=== PATIENT | female | born 1995 | race Two or more races ===

== ENCOUNTER 2019-04-16 18:18 | Emergency (ER) | payer OTHER ==
--- NOTE | 2019-04-16 18:43 | EDM.PDOC ---
ED HPI GENERAL MEDICAL PROBLEM - General Chief Complaint: Genitourinary Problem Stated Complaint: POSSIBLE UTI Time Seen by Provider: 04/16/19 18:25 Source of Information: Reports: Patient History Limitations: Reports: No Limitations - History of Present Illness INITIAL COMMENTS - FREE TEXT/NARRATIVE: Pt. presents to ER with complaints of dysuria, frequency, and urgency that started today. She states that she has had UTIs in the past, and states that the symptoms are similar. Denies any fever or chills. No abd. pain. Denies any CVA tenderness. Pt. denies any nausea, vomiting, or diarrhea. She denies any current allergies. Onset: Today Onset Date: 04/16/19 Location: Reports: Generalized Quality: Reports: Burning Associated Symptoms: Denies: Diaphoresis, Fever/Chills, Loss of Appetite, Malaise, Nausea/Vomiting, Rash, Shortness of Breath - Related Data Allergies Allergy/AdvReac Type Severity Reaction Status Date / Time No Known Allergies Allergy Verified 04/16/19 18:33 Home Meds: Home Meds . [No Known Home Meds] 04/16/19 [History] Past Medical History - Past Health History Medical/Surgical History: Denies Medical/Surgical History Social & Family History - Tobacco Use Smoking Status *Q: Never Smoker - Recreational Drug Use Recreational Drug Use: No ED ROS GENERAL - Review of Systems Review Of Systems: See Below Constitutional: Reports: No Symptoms HEENT: Reports: No Symptoms Respiratory: Reports: No Symptoms Cardiovascular: Reports: No Symptoms Endocrine: Reports: No Symptoms GI/Abdominal: Reports: No Symptoms : Reports: Dysuria, Frequency, Urgency Musculoskeletal: Reports: No Symptoms Skin: Reports: No Symptoms Neurological: Reports: No Symptoms Psychiatric: Reports: No Symptoms Hematologic/Lymphatic: Reports: No Symptoms Immunologic: Reports: No Symptoms ED EXAM, GENERAL - Physical Exam Exam: See Below Exam Limited By: No Limitations General Appearance: Alert, WD/WN, No Apparent Distress Course - Vital Signs Last Recorded V/S: Last Vital Signs Temp 36.4 C 04/16/19 18:25 Pulse 89 04/16/19 18:25 Resp 18 04/16/19 18:25 BP 132/81 04/16/19 18:25 Pulse Ox 98 04/16/19 18:25 - Orders/Labs/Meds Orders: Active Orders 24 hr Category Date Time Status CULTURE URINE [RM] Stat Lab 04/16/19 18:38 Received UA W MICR POC [POC] Stat Lab 04/16/19 18:38 Results Labs: Laboratory Tests 04/16/19 Range/Units 18:38 Urine Color Yellow (YELLOW) POC Urine Appearance Slightly cloudy H (CLEAR) POC Urine pH 6.0 (5.0-8.0) Ur Specific [place] 1.020 (1.005-1.030) POC Urine Protein 30 H (NEGATIVE) POC Ur Glucose (UA) Negative (NEGATIVE) POC Urine Ketones Negative (NEGATIVE) POC Ur Occult Blood Large H (NEGATIVE) POC Urine Nitrite Negative (NEGATIVE) POC Urine Bilirubin Negative (NEGATIVE) POC Urine Urobilinogen 0.2 (0.2) POC U Leukocyte Esteras Small H (NEGATIVE) Meds: Medications Discontinued Medications Generic Name Dose Route Start Last Admin Trade Name Sameera PRN Reason Stop Dose Admin Trimethoprim/Sulfamethoxazole 1 packet 04/16/19 18:46 Take Home: Sulfameth/Trimet 800-160mg, 2 Pack PO 04/16/19 18:47 ONETIME ONE Departure - Departure Time of Disposition: 18:55 Disposition: Home, Self-Care 01 Clinical Impression: UTI, Urinary tract infectious disease - Discharge Information Instructions: Urinary Tract Infection, Adult, [id number], Sulfamethoxazole; Trimethoprim, SMX-TMP tablets, Probiotics Referrals: PCP,Unknown [Primary Care Provider] - Forms: ED Department Discharge Additional Instructions: Bactrim DS 1 twice daily for 5 days Drink plenty of fluids Recheck in clinic in 7-10 days Sepsis Event Note - Evaluation Sepsis Screening Result: No Definite Risk - Focused Exam Vital Signs: Vital Signs Temp Pulse Resp BP Pulse Ox 04/16/19 18:25 36.4 C 89 18 132/81 98 Date Exam was Performed: 04/16/19 Time Exam was Performed: 18:55 - My Orders Last 24 Hours: My Active Orders 04/16/19 18:38 CULTURE URINE [RM] Stat UA W MICR POC [POC] Stat - Assessment/Plan Last 24 Hours: My Active Orders 04/16/19 18:38 CULTURE URINE [RM] Stat UA W MICR POC [POC] Stat Plan: Bactrim DS 1 twice daily for 5 days Drink plenty of fluids Recheck in clinic in 7-10 days
[2019-04-16] MEDS ORDERED: Take Home: Sulfamethoxazole/Trimethoprim 800-160 MG Tab, 2 Tab Pack PO ONE (18:46)
== END 2019-04-16 19:06 | disposition home or self-care (01) ==
LOC: VM.ED 18:18
DX: N39.0 Urinary tract infection, site not specified (principal)
CPT/HCPCS: 81000; 87086; 87088; 99283; A9270-GY

== ENCOUNTER 2019-07-14 22:34 | Emergency (ER) | payer OTHER ==
[2019-07-14] MEDS ORDERED: Sodium Chloride 0.9% 10 ML Syringe FLUSH PRN (22:50)
--- NOTE | 2019-07-14 22:56 | EDM.PDOC ---
ED HPI GENERAL MEDICAL PROBLEM - General Chief Complaint: Headache Stated Complaint: headache Time Seen by Provider: 07/14/19 22:34 Source of Information: Reports: Patient History Limitations: Reports: No Limitations - History of Present Illness INITIAL COMMENTS - FREE TEXT/NARRATIVE: Patient comes into the emergency department with complaints of a headache and nausea. Patient had surgery 2 days ago for a left knee repair. Patient states after returning home she began to have a headache that has slowly intensified over the course the last 2 days. She first noticed it on the drive home from the hospital She also states that she has had intermittent nausea with vomiting. She last vomited approximately 24 hours ago. Patient states that the headache has been constant and has not improved. When nursing staff contacted her from the surgery center she did not discuss her concerns with them. Patient states that she has been resting at home has been taking pain medications as prescribed. She states that she has not had any issues or concerns related to her surgery and feels that that is healing well- no fever, bleeding, redness, increased warmth, or furthering swelling. Her only concern currently is her headache that is on stent. She describes it as a throbbing sensation with light sensitivity. Denies having history of headache or migraines. She also denies any visual disturbances, this, tingling, mireya pain , chest pain, or shortness of breath. She locates the area in the occipital region describes it as a severe dull or throbbing sensation, it did begin after her surgical intervention in the lumbar puncture. She also states that the lumbar puncture took approximately 3-4 attempts. Patient also states that when she coughs or sneezes it hurts more. Denies any other concerns or complaints currently. Onset: Gradual Quality: Reports: Dull, Throbbing Severity: Moderate Improves with: Reports: None Worsens with: Reports: None Associated Symptoms: Reports: No Other Symptoms Treatments SCENIC ARTIST: Reports: Acetaminophen, Other (see below) (hydrocodone) - Related Data Allergies Allergy/AdvReac Type Severity Reaction Status Date / Time No Known Allergies Allergy Verified 04/16/19 18:33 Home Meds: Home Meds Ciprofloxacin HCl [Cipro] 500 mg PO BID 5 Days tablet 04/21/19 [Rx] Past Medical History - Past Health History Medical/Surgical History: Denies Medical/Surgical History ED ROS GENERAL - Review of Systems Review Of Systems: See Below Constitutional: Reports: No Symptoms HEENT: Reports: No Symptoms Respiratory: Reports: No Symptoms Cardiovascular: Reports: No Symptoms Endocrine: Reports: No Symptoms GI/Abdominal: Reports: No Symptoms Musculoskeletal: Reports: Leg Pain (Left knee surgery ) Skin: Reports: No Symptoms Neurological: Reports: Headache. Denies: Confusion, Dizziness, Numbness, Paresthesia, Pre-Existing Deficit, Seizure, Tingling, Tremors, Trouble Speaking , Difficulty Walking, Weakness, Change in Speech Psychiatric: Reports: No Symptoms Hematologic/Lymphatic: Reports: No Symptoms Immunologic: Reports: No Symptoms - Physical Exam Exam: See Below Exam Limited By: No Limitations General Appearance: Alert, WD/WN, No Apparent Distress Ears: Normal External Exam, Normal Canal, Hearing Grossly Normal Nose: Normal Inspection, Normal Mucosa Throat/Mouth: Normal Inspection, Normal Lips Head Exam: Atraumatic, Normocephalic Neck: Normal Inspection, Supple, Non-Tender, Full Range of Motion. No: Carotid Bruit, Limited Range of Motion, Lymphadenopathy (L), Lymphadenopathy (R), Tender Lateral, Tender Midline, Thyromegaly Respiratory/Chest: No Respiratory Distress, Lungs Clear, Normal Breath Sounds, No Accessory Muscle Use, Chest Non-Tender GI/Abdominal: Soft, Non-Tender, No Distention Neuro Exam (Abbreviated): Alert, Oriented, CN II-XII Intact, Normal Cognition Extremities: Other (left leg splint with juan antonio wrap. Toes pink, warm dry, pulses present, no bleeding noted on bandage ) Psychiatric: Normal Affect, Normal Mood Skin Exam: Warm, Dry, Intact, Normal Color, No Rash Course - Orders/Labs/Meds Orders: Active Orders 24 hr Category Date Time Status Sodium Chloride 0.9% [Normal Saline] 1,000 ml Med 07/14/19 23:03 Ordered IV ONETIME Sodium Chloride 0.9% [Saline Flush] Med 07/14/19 22:50 Ordered 10 ml FLUSH ASDIRECTED PRN Peripheral IV Insertion Adult [OM.PC] Stat Oth 07/14/19 22:50 Ordered Medication Orders Sodium Chloride (Normal Saline) 1,000 mls @ 1,000 mls/hr IV ONETIME ONE Stop: 07/15/19 00:02 Last Admin: 07/14/19 23:02 Dose: 1,000 mls/hr Sodium Chloride (Saline Flush) 10 ml FLUSH ASDIRECTED PRN PRN Reason: Keep Vein Open Meds: Medications Generic Name Dose Route Start Last Admin Trade Name Freq PRN Reason Stop Dose Admin Sodium Chloride 1,000 mls @ 1,000 mls/hr 07/14/19 23:03 07/14/19 23:02 Normal Saline IV 07/15/19 00:02 1,000 mls/hr ONETIME ONE Administration Sodium Chloride 10 ml 07/14/19 22:50 Saline Flush FLUSH ASDIRECTED PRN Keep Vein Open Discontinued Medications Generic Name Dose Route Start Last Admin Trade Name Freq PRN Reason Stop Dose Admin Acetaminophen/Butalbital/Caffeine 1 tab 07/14/19 22:48 Fioricet 325-50-40 Mg PO 07/14/19 22:49 ONETIME ONE Ondansetron HCl 4 mg 07/14/19 22:49 07/14/19 23:02 Zofran IVPUSH 07/14/19 22:50 4 mg ONETIME ONE Administration Ondansetron HCl 2 packet 07/14/19 23:29 Take Home: Ondansetron Odt 4 Mg, 2 Tab Pack PO 07/14/19 23:30 ONETIME ONE - Re-Assessments/Exams Free Text/Narrative Re-Assessment/Exam: 07/14/19 23:52 Patient expresses feeling much better after treatment and is ready to go home and rest. Departure - Departure Time of Disposition: 23:50 Disposition: Home, Self-Care 01 Condition: Good Clinical Impression: Spinal headache - Discharge Information *PRESCRIPTION DRUG MONITORING PROGRAM REVIEWED*: Not Applicable *COPY OF PRESCRIPTION DRUG MONITORING REPORT IN PATIENT BRIE: Not Applicable Instructions: Spinal Headache Referrals: Radha Mattson NP [Primary Care Provider] - Forms: ED Department Discharge Additional Instructions: 1. rest 2. increase your water intake and caffeine intake for the next few days 3. Continue all at home medications 4. Activity and diet as tolerated continue to follow surgeons recommendations regarding post surgical care 5. Can take over the counter Tylenol or ibuprofen for any pain or discomfort if mild to moderate and limit the narcotics to severe pain 6. May need to call and speak to the surgical staff on Wednesday if discomfort continues to discuss a blood patch 7. If headache returns or intensifies while sitting up lay down and symptoms may lesson within 30 mins. 8. Follow up with PCP if symptoms continue, return, or progress 9. Call with any questions or concerns Sepsis Event Note - Focused Exam Date Exam was Performed: 07/14/19 Time Exam was Performed: 23:44 - My Orders Last 24 Hours: My Active Orders 07/14/19 22:50 Sodium Chloride 0.9% [Saline Flush] 10 ml FLUSH ASDIRECTED PRN Peripheral IV Insertion Adult [OM.PC] Stat 07/14/19 23:03 Sodium Chloride 0.9% [Normal Saline] 1,000 ml IV ONETIME - Assessment/Plan Last 24 Hours: My Active Orders 07/14/19 22:50 Sodium Chloride 0.9% [Saline Flush] 10 ml FLUSH ASDIRECTED PRN Peripheral IV Insertion Adult [OM.PC] Stat 07/14/19 23:03 Sodium Chloride 0.9% [Normal Saline] 1,000 ml IV ONETIME Assessment:: 1. spinal headache post spinal infusion with multiple attempts Plan: 1. IV initiated in the emergency department 2. IV fluids provided 3. Caffeine was given for pain and discomfort 4. Zofran given in the ER to help with nausea 5. Patient and nursing staff was updated regarding the plan of care 6. Education provided the patient regarding activity, diet, rest, over-the- counter medication modalities, and follow-up care was provided 7. Patient and family are agreeable to the above plan of care 8. All questions and concerns were addressed with the patient and family prior to discharge
[2019-07-14] MEDS: Ondansetron 4 MG/2 ML SDV IVPUSH ONE (23:02)
[2019-07-14] MEDS: Sodium Chloride 0.9% 1,000 ML IV ONE (23:02)
[2019-07-14] MEDS: Take Home: Ondansetron 4 MG Tab.DIS, 2 Tab Pack PO ONE (23:48)
[2019-07-15] MEDS: Acetaminophen/Butalbital/Caffeine 325-50-40 MG Tab PO ONE (00:59)
== END 2019-07-15 00:02 | disposition home or self-care (01) ==
LOC: VM.ED 22:34
DX: G97.1 Other reaction to spinal and lumbar puncture (principal)
CPT/HCPCS: 96361; 96374; 99283; A9270; J2405; J7030

== ENCOUNTER 2021-08-21 19:40 | Emergency (ER) | payer MEDICAID, OTHER ==
[2021-08-21] MEDS ORDERED: Take Home: Amoxicillin/Clavulanate K 875-125 MG Tab, 2 Tab Pack PO ONE (19:52)
== END 2021-08-21 20:11 | disposition home or self-care (01) ==
LOC: VM.ED 19:40
DX: H66.92 Otitis media, unspecified, left ear (principal); Z79.899 Other long term (current) drug therapy; Z88.1 Allergy status to other antibiotic agents
CPT/HCPCS: 99282; 99283; A9270

== ENCOUNTER 2023-04-10 21:44 | Emergency (ER) | payer SELFPAY | END 2023-04-10 22:38 | disposition home or self-care (01) | LOC: VM.ED 21:44 | DX: T50.B95A Adverse effect of other viral vaccines, initial encounter (principal) | CPT/HCPCS: 99283 ==